=== PATIENT | female | born 1980 | race Caucasian/White ===

== ENCOUNTER 2023-12-21 07:17 | Day surgery (SDC) | payer BC ==
[~2023-12-21 07:17] MED LIST: Dexamethasone 4 MG/ML 5 ML MDV ONE; Lactated Ringers 1,000 ML IV SCH; Lactated Ringers 1,000 ML ONE; Lidocaine 1% 4 ML ONE; Midazolam 1 MG/ML 2 ML SDV ONE; Ondansetron 4 MG/2 ML SDV ONE; Propofol 200 MG/20 ML SDV ONE; Rocuronium 50 MG/5 ML Vial ONE; Sodium Chloride 0.9% 10 ML Syringe FLUSH PRN; Sodium Chloride 0.9% 10 ML Syringe FLUSH SCH; dexmedeTOMIDine HCl 200 MCG/2 ML SDV ONE; fentaNYL 250 MCG/5 ML SDV ONE
[2023-12-21] MEDS ORDERED: dexmedeTOMIDine HCl 200 MCG/2 ML SDV ONE (07:40)
[2023-12-21] MEDS ORDERED: HYDROmorphone 0.5 MG/0.5 ML Syringe ONE (07:42)
[2023-12-21] MEDS: Lactated Ringers 1,000 ML IV SCH (07:45)
[2023-12-21 07:50] LABS: APPEARANCE,URINE CLEAR (Clear); BILIRUBIN,URINE NEGATIVE (Negative); COLOR,URINE YELLOW (Yellow); GLUCOSE,URINE NEGATIVE (Negative); KETONES,URINE NEGATIVE (Negative); LEUKOCYTE ESTERASE,URINE NEGATIVE (Negative); NITRITE,URINE NEGATIVE (Negative); OCCULT BLOOD,URINE TRACE-INTACT (Negative); PH,URINE 6.5 (5.0-8.0); PROTEIN,URINE NEGATIVE (Negative)
[2023-12-21] MEDS ORDERED: Ketorolac 30 MG/ML SDV ONE (07:58)
[2023-12-21] MEDS ORDERED: ePHEDrine 50 MG/ML SDV ONE (08:14)
[2023-12-21] MEDS ORDERED: ceFAZolin 2 GM Vial ONE (08:20)
[2023-12-21] MEDS: Bupivacaine 0.5% 30 ML SDV ONE (08:41)
[2023-12-21] MEDS: Bupivacaine 0.25% 10 ML SDV ONE (09:20)
[2023-12-21] MEDS: EPINEPHrine 1 MG/ML SDV ONE (09:20)
[2023-12-21] MEDS ORDERED: fentaNYL 100 MCG/2 ML SDV IVPUSH PRN (09:56)
[2023-12-21] MEDS ORDERED: HYDROmorphone 0.5 MG/0.5 ML Syringe IVPUSH PRN (09:56)
[2023-12-21] MEDS ORDERED: Ondansetron 4 MG/2 ML SDV IVPUSH PRN (09:56)
== END 2023-12-21 13:05 | disposition home or self-care (01) ==
LOC: JD.SDS 07:17
PROVIDERS: ATTEND Obstetrics & Gynecology
DX: D25.2 Subserosal leiomyoma of uterus (principal); D25.1 Intramural leiomyoma of uterus; D25.0 Submucous leiomyoma of uterus; N80.03 Adenomyosis of the uterus; N94.89 Other specified conditions associated with female genital organs and menstrual cycle; R10.2 Pelvic and perineal pain; J44.9 Chronic obstructive pulmonary disease, unspecified; F17.200 Nicotine dependence, unspecified, uncomplicated; J45.909 Unspecified asthma, uncomplicated; F41.9 Anxiety disorder, unspecified; Z79.899 Other long term (current) drug therapy
CPT/HCPCS: 36415; 58552; 81003; 81025; 86850; 86900; 86901; J0171; J0665; J0690; J1100; J1170; J1596; J1885; J2250; J2405; J2704; J3010; J3490; J7120; 00944

== ENCOUNTER 2024-04-11 09:26 | Day surgery (SDC) | payer BC ==
[~2024-04-11 09:26] MED LIST changes: -Dexamethasone 4 MG/ML 5 ML MDV ONE; -Lactated Ringers 1,000 ML IV SCH; -Lactated Ringers 1,000 ML ONE; -Lidocaine 1% 4 ML ONE; -Midazolam 1 MG/ML 2 ML SDV ONE; -Ondansetron 4 MG/2 ML SDV ONE; -Propofol 200 MG/20 ML SDV ONE; -Rocuronium 50 MG/5 ML Vial ONE; -dexmedeTOMIDine HCl 200 MCG/2 ML SDV ONE; -fentaNYL 250 MCG/5 ML SDV ONE
[2024-04-11] MEDS: Lactated Ringers 1,000 ML IV SCH (09:45)
[2024-04-11] MEDS ORDERED: Propofol 200 MG/20 ML SDV ONE ×3 (10:02)
[2024-04-11] MEDS ORDERED: Lidocaine 2% 5 ML SDV ONE (10:03)
== END 2024-04-11 11:13 | disposition home or self-care (01) ==
LOC: JD.SDS 09:26
PROVIDERS: ATTEND Surgery
DX: K44.9 Diaphragmatic hernia without obstruction or gangrene (principal); J44.9 Chronic obstructive pulmonary disease, unspecified; K21.9 Gastro-esophageal reflux disease without esophagitis; Z79.899 Other long term (current) drug therapy; F17.210 Nicotine dependence, cigarettes, uncomplicated
CPT/HCPCS: 43239; J2704; J3490; J7120; 00731

== ENCOUNTER 2025-02-20 07:00 | Day surgery (SDC) | payer BC ==
[~2025-02-20 07:00] MED LIST changes: +Propofol 200 MG/20 ML SDV ONE
[2025-02-20] MEDS: Lactated Ringers 1,000 ML IV SCH (07:22)
[2025-02-20] MEDS ORDERED: Propofol 200 MG/20 ML SDV ONE ×2 (08:06→08:11)
== END 2025-02-20 08:57 | disposition home or self-care (01) ==
LOC: JD.SDS 07:00
PROVIDERS: ATTEND Surgery
DX: Z12.11 Encounter for screening for malignant neoplasm of colon (principal); K62.1 Rectal polyp; J44.89 Other specified chronic obstructive pulmonary disease; Z79.899 Other long term (current) drug therapy
CPT/HCPCS: 45380; J2003; J2704; J7120